=== PATIENT | male | born 1965 | race Native Hawaiian/Other Pacific Islander ===

== ENCOUNTER 2020-12-01 10:48 | Outpatient (CLI) | payer BC, OTHER | END 2020-12-01 23:59 | disposition home or self-care (01) | LOC: INF 10:48 | PROVIDERS: ATTEND Internal Medicine | DX: Z23 Encounter for immunization (principal) ==

== ENCOUNTER 2020-12-29 10:30 | Outpatient (CLI) | payer BC, OTHER | END 2020-12-29 21:49 | disposition home or self-care (01) | LOC: INF 10:30 | PROVIDERS: ATTEND Internal Medicine | DX: Z23 Encounter for immunization (principal) | CPT/HCPCS: 96372 ==